=== PATIENT | female | born 1930 | race Caucasian/White ===

== ENCOUNTER 2017-11-03 02:51 | Inpatient (IN) | payer OTHER, MEDICARE ==
[~2017-11-03] VITALS: Ht 154.9 cm; Wt 49.9 kg
[~2017-11-03 02:51] MED LIST: AMOXICILLIN875 M1 PO; ATORVASTATIN CA20 M1 PO; ESCITALOPRAM OX10 MG PO; LEVOTHYROXINE75 MCG PO; MELOXICAM15 M1 PO
--- NOTE | 2017-11-03 10:17 | Admission Core Measures ---
Acute Coronary Syndrome (CM) ACS Core Measures Acute Coronary Syndrome Diagnosis No Congestive Heart Failure (NEW) CHF Core Measures Congestive Heart Failure Diagnosis No Cerebrovascular Accident (NEW) CVA Core Measures CVA/TIA Diagnosis No Venous Thromboembolism VTE Core Bentley (View Protocol) VTE Risk Factors Surgery No Mechanical VTE Prophylaxis d/t N/A MechProphylax Ordered No VTE Pharm Prophylaxis d/t NA PharmProphylax ordered Problem List As ranked by this Provider includes Assessment & Plan 1. Unilateral primary osteoarthritis, right hip HOME MEDS Home Med List Atorvastatin Calcium 20 MG TABLET 1 TAB PO DAILY CHOLESTEROL (Reported) Escitalopram Oxalate 10 MG TABLET 1 TAB PO DAILY MENTAL HEALTH (Reported) Levothyroxine Sodium 75 MCG TABLET 1 TAB PO DAILY THYROID (Reported) Meloxicam 15 MG TABLET 1 TAB PO DAILY PAIN/INFLAMMATION (Reported)
[2017-11-03] MEDS ORDERED: COLACE100 M1 PO (10:21)
[2017-11-03] MEDS ORDERED: MIRALAX17 G1 PO (10:21)
[2017-11-03] MEDS ORDERED: LO-DOSE ASPIRIN81 MG PO (10:21)
[2017-11-03] MEDS ORDERED: DILAUDID2 M1 PO (10:21)
[2017-11-03] MEDS ORDERED: PRILOSEC OTC20 M1 PO (10:21)
--- NOTE | 2017-11-03 10:25 | Patient Discharge Instructions ---
Discharge Instructions General Discharge Information You were seen/treated for: Right hip pain related to unilateral primary osteoarthritis You had these procedures: Right total hip replacement Watch for these problems: Increasing pain despite the use of pain medication Increasing redness, warmth or swelling Drainage of any type from incision Inability to bear weight on operative leg Persistent nausea and vomiting Fever greater than 101.5 degrees Do not soak the wound: Yes No bath, but you may shower: Yes Other wound care: Please keep wound clean and dry. No ointments or lotions of any type on or near incision at any time. No exceptions. Your dressing will be changed by your nurse on the second day after your surgery. Daily dry dressing changes are recommended each day thereafter. Do not soak your wound in a bath at any time until otherwise indicated by your surgeon. You may shower, please dry wound immediately after shower with a clean towel. Special Instructions: Aspirin: You are taking this medication to help prevent blood clot formation. Please take with food to protect your stomach lining. Please take as directed. Constipation: Pain medication can cause constipation. Dr. Wilkerson has recommended that you take Colace and miralax each day. You may discontinue this medication if you develop loose stool or diarrhea. If you wish to continue this medication, it is available over the counter. If you are unable to move your bowels after several days, if you are unable to pass gas and are developing bloating, nausea, or vomiting as a result, please contact your doctor. Diet Continue normal diet: Yes Recommended Diet: Regular Activity Full Activity/No Limits: No Activity Self Limited: Yes Pounds, do NOT lift more than: 10 Acute Coronary Syndrome Inclusion Criteria At DC or during hospital stay patient has or had the following: ACS DIAGNOSIS No Discharge Core Measures Meds if any: Prescribed or Continued at Discharge Meds if any: NOT Prescribed or Continued at Discharge Congestive Heart Failure Inclusion Criteria At DC or during hospital stay patient has or had the following: CHF DIAGNOSIS No Discharge Core Measures Meds if any: Prescribed or Continued at Discharge Meds if any: NOT Prescribed or Continued at Discharge Cerebrovascular accident Inclusion Criteria At DC or during hospital stay patient has or had the following: CVA/TIA Diagnosis No Discharge Core Measures Meds if any: Prescribed or Continued at Discharge Meds if any: NOT Prescribed or Continued at Discharge Venous thromboembolism Inclusion Criteria VTE Diagnosis No VTE Type NONE VTE Confirmed by (Test) NONE Discharge Core Measures - Per Current guidelines, there needs to be overlap - treatment for the first 5 days of Warfarin therapy. - If discharged on Warfarin prior to 5 days of - overlap therapy, the patient will need to be - assessed for post discharge needs including - *Post discharge parental anticoagulation - *Warfarin and/or parental anticoagulation education - *Follow up date to check INR post discharge At least 5 days overlap therapy as Inpatient No Meds if any: Prescribed or Continued at Discharge Note: Overlap Therapy is Warfarin and Anticoagulant Meds if any: NOT Prescribed or Continued at Discharge
--- NOTE | 2017-11-03 10:31 | Surgical Discharge Summary ---
Visit Information Visit Dates Admission Date: 11/03/17 Discharge Date: 11/06/17 History of Present Illness Chief Complaint: Right hip pain related to unilateral primary osteoarthritis Medical History Neurological: NONE EENT: NONE Cardiovascular: NONE Respiratory: NONE Gastrointestinal: NONE Hepatic: NONE Renal: NONE Musculoskeletal: NONE Psychiatric: NONE Endocrine: NONE Blood Disorders: NONE Cancer(s): breast cancer Isolation History: Standard Surgical History Pertinent Surgical History: non-contributory Psychosocial History What is Your Primary Language? Hebrew Review of Systems: See H&P Hospital Course Course Attending Physician: Antonio Wilkerson MD Primary Care Physician: Garrick Connolly MD Hospital Course: Patient was admitted to the hospital for an elective total joint replacement. The procedure was tolerated well and patient was transferred to a general surgical floor. Diet was advanced and tolerated, and the patient voided spontaneously. The patient was evaluated and treated by physical therapy. At the time of hospital discharge, the vital signs were stable, neurovascular status was intact, and pain was controlled with the use of oral pain medications. Allergies: Coded Allergies: No Known Allergies (09/07/17) Disposition Summary Disposition Principal Diagnosis: Right hip unilateral primary osteoarthritis Additional Diagnosis: None Discharge Disposition: home health services Discharge Instructions General Discharge Information Code Status: Full Code Patient's Diet: Regular, advance as tolerated Patient's Activity: WBAT Follow-Up Instructions/Appts: Follow up with Dr. Wilkerson in 6 weeks from date of surgery. Please call his office to arrange and/or confirm this appointment. Medications at Discharge Discharge Medications: Stop taking the following medications: Meloxicam (Meloxicam) 15 MG TABLET ORAL DAILY Qty = 30 Continue taking these medications: Atorvastatin Calcium (Atorvastatin Calcium) 20 MG TABLET 1 Tablet ORAL DAILY Qty = 90 Comments: Last Taken:11/05/17 Time:5PM Levothyroxine Sodium (Levothyroxine Sodium) 75 MCG TABLET 1 Tablet ORAL DAILY Qty = 90 Comments: Last Taken:11/06/17 Time:6AM Escitalopram Oxalate (Escitalopram Oxalate) 10 MG TABLET 1 Tablet ORAL DAILY Qty = 90 Comments: Last Taken:11/06/17 Time:9AM Start taking the following new medications: Aspirin (Lo-Dose Aspirin EC) 81 MG TABLET. 2 Tablet ORAL TWICE DAILY Qty = 84 No Refills Comments: Last Taken:11/06/17 Time:9AM Docusate Sodium (Colace) 100 MG CAPSULE 1 Capsule ORAL TWICE DAILY Qty = 14 No Refills Instructions: DISCONTINUE USE IF YOU DEVELOP LOOSE STOOL OR DIARRHEA Comments: Last Taken:11/06/17 Time:9AM Polyethylene Glycol 3350 (Miralax) 17 GRAM POWD.PACK 1 Packet ORAL DAILY Qty = 7 No Refills Instructions: dissolve in water, DISCONTINUE USE IF YOU DEVELOP LOOSE STOOL OR DIARRHEA Comments: Last Taken:11/06/17 Time:9AM Omeprazole Magnesium (Prilosec Otc) 20 MG TABLET.DR 1 Tablet ORAL DAILY Qty = 30 No Refills Comments: Last Taken:11/06/17 Time:6AM Hydromorphone HCl (Dilaudid) 2 MG TABLET 1-2 Tablet ORAL EVERY 4-6 HOURS NEEDED as needed for PAIN Qty = 36 No Refills Comments: NOT GIVEN
--- NOTE | 2017-11-03 12:07 | RADIOLOGY REPORT ---
EXAMINATION: XR HIP, RIGHT CLINICAL INFORMATION: Status post total hip replacement COMPARISON: None TECHNIQUE: AP and crosstable lateral views of the right hip were obtained FINDINGS: The components of the total hip arthroplasty are in their expected positions. The femoral head prosthesis is well centered within the acetabular cup. The tip of the femoral stem is well-positioned in the medullary cavity of the proximal femoral diaphysis. No acute periprosthetic fracture. Postoperative soft tissue emphysema around the hip. IMPRESSION: 1. There is satisfactory positioning and alignment of components of the right total hip arthroplasty. 2. No acute periprosthetic fracture.
[2017-11-03 13:02] VITALS: BP 140/68
--- NOTE | 2017-11-03 14:19 | Operative Report ---
Operative/Inv Procedure Report Surgery Date: 11/03/17 Name of Procedure: Right total hip replacement Pre-Operative Diagnosis: Primary right hip DJD Post-Operative Diagnosis: Same Estimated Blood Loss: 250 Surgeon/Senior Web Developer: Rock VICKERS,Antonio Valdez Anesthesia: laryngeal mask airway, block Operative/Procedure Note Note: Description of Procedure: The patient was taken to the operating room and positively identified. After induction of spinal anesthesia and administration of appropriate pre-operative antibiotics, the patient was positioned supine on the operating room table and all bony prominences were well padded. After performing a surgical timeout, the right lower extremity was prepped and draped in the usual sterile fashion. A direct anterior approach was made to the right hip. The incision was carried sharply through superficial soft tissues to the level of the fascia. Meticulous hemostasis was maintained with Bovie electocautery. The fascia over the tensor fascia nilson muscle was opened sharply and the interval between the TFL and the sartorius was entered bluntly taking care to stay lateral to the lateral femoral cutaneous nerve. Retractors were placed around the femoral neck and the pericapsular fat was identified. The ascending branches of the lateral femoral circumflex vessels were identified and carefully coagulated. The pericapsular fat and anterior capsule were then resected. A napkin ring osteotomy was performed and the femoral head was removed without difficulty. Attention was then turned to the acetabulum. After appropriate placement of retractors, the acetabulum was exposed. Soft tissue was cleaned from the acetabular margin and notch. Overhanging osteophytes were removed and the teardrop was exposed. The acetabulum was then sequentially reamed to accept a 54 mm [place] Tritanium hemispherical solid shell. This was impacted into place in the appropriate position and fitted with a 36 mm Trident X3 zero degree polyethylene insert. Attention was then turned to the femur. After performing the appropriate ligament releases, the proximal femur was exposed. It was then sequentially broached to accept a size #2 [place] Accolade II stem. This was trialed for leg length and stability. The trial component was removed and the final component was impacted into place. The trunnion was carefully cleaned and fit with a 36 mm, -2.5 Biolox delta ceramic femoral head. The hip was reduced and put through a full range of motion and found to be stable. The articular space was then irrigated with sterile saline. The periarticular soft tissues were infilitrated with Marcaine. The fascial layer was closed with interrupted #1 vicryl suture and the skin was re-approximated with interrupted 2 -0 vicryl. The skin was closed with a running 3-0 V-Lock suture. Steri-strips and a sterile dressing were applied. The patient was awakened and taken to the recovery room in satisfactory condition.
--- NOTE | 2017-11-03 15:11 | PN- Orthopedic ---
Subjective Subjective: Post op check: No complaints offered at the present time. She states that she is starting to feel slightly sore in her operative groin. She denies chest pain , shortness of breath and difficulty breathing. She denies nausea and vomitting. She reports a void. Objective Vital Signs and I&Os Vital Signs Date Time Temp Pulse Resp B/P B/P Pulse O2 O2 Flow FiO2 Mean Ox Delivery Rate 11/03 1302 97.6 75 20 140/68 90 Room Air Room Air Intake & Output 11/03 1600 11/03 0811/03 0000 11/02 1600 11/02 0800 11/02 0000 Intake Total Output Total Balance Patient 110 lb Weight Weight Reported by Patient Measurement Method Physical Exam: General: Alert and oreinted x3, no acute distress, resting comfortably Cardiac: RRR, s1s2 Pulm: CTA bilaterally ABD: Non-tender, non-distended Extremities: Moves all extremities, distal sensation grossly intact. Motor 5/5 in plantar and dorsi flexion. No rotational deformity. Skin warm and well pefused. DP pulses palpable bilaterally. Bilateral calves soft and non-tender. Surgical site: R KERRIE. Dressing dry and intact. Thigh compartment soft. No evidence of hematoma. Assessment/Plan Assessment/Plan This is a 87 year old female POD 0 s/p R THR. PMH signficant for: hld, dep, and hypothyroid. -Continue all home meds -ABX ppx: Ancef 2 grams, q8 hours for a total of 2 additional doses -DVT ppx: ASA 325 bid, ALPS, TEDS -Pain regimen: ATC offirmev, po dilaudid prn, iv morphine for breakthrough prn -Activity: OOB encouraged, Can WBAT -Diet: Regular, advance as tolerated -DC iv fluids when voiding regularly and taking in adequate po -Will follow up am labs tomorrow, cbc and bep -Incentive spirometry encouraged -Anticipate dc to home with hhs after 3 nights Core Measures Venous Thromboembolism VTE Risk Factors Surgery No Mechanical VTE Prophylaxis d/t N/A MechProphylax Ordered No VTE Pharm Prophylaxis d/t NA PharmProphylax ordered
[2017-11-03 16:00] VITALS: BP 130/70
[2017-11-03 18:00] VITALS: BP 132/64
[2017-11-03 21:30] VITALS: BP 124/60
[2017-11-04 02:00] VITALS: BP 110/69
[2017-11-04 06:00] VITALS: BP 150/70
--- NOTE | 2017-11-04 07:19 | PN- Orthopedic ---
Subjective Subjective: Complaints of soreness in the right hip, no other complaints, no acute events overnight, pain medication is helping her. She has been in the toilet to the bathroom without difficulty with assist, she is voiding without difficulty. She is taking in adequate by mouth fluids. no fever or flulike illness. Objective Vital Signs and I&Os Vital Signs Date Time Temp Pulse Resp B/P B/P Pulse O2 O2 Flow FiO2 Mean Ox Delivery Rate 11/04 0600 98.0 93 20 150/70 94 Room Air 11/04 0200 98.9 76 20 110/69 93 Room Air 02 0000 Room Air 02 2130 98.7 80 20 124/60 94 Room Air / 1800 97.8 94 20 132/64 93 Room Air / 1600 98.5 82 18 130/70 93 Room Air 02/ 1302 97.6 75 20 140/68 90 Room Air Room Air Intake & Output 11/04 0800 02/06 0000 02/05 1600 / 0800 02/ 0000 02/ 1600 Intake Total 1080 270 Output Total 1400 2200 Balance -1400 -1120 270 Intake, IV 600 150 Intake, Oral 480 120 Output, Urine 1400 2200 Patient 110 lb Weight Weight Reported by Patient Measurement Method Physical Exam: Well-developed well-nourished no apparent distress. HEENT: Atraumatic, extraocular motion intact Neck: Supple, no lymphadenopathy Respiratory: No respiratory distress Extremities: No edema RIGHT lower extremity hip dressing in place, Dressing clean dry and intact Mild thigh swelling No signs of infection. No shortening or rotation Hip range of motion is limited and without unexpected pain Neurovascularly intact distally Bilateral calves are supple, nontender. Neuro: Alert and oriented x3 Psych: Mood affect normal, normal memory normal judgment. Skin: Warm and dry, no rash on exposed skin Assessment/Plan Assessment/Plan Postop day 1 status post right total hip arthroplasty anterior approach. Perioperative antibiotics. Pain medication as needed. Out of bed Physical therapy, weightbearing as tolerated DC IV fluids Regular diet Follow a.m. labs Aspirin for DVT prophylaxis ALPS for DVT prophylaxis Regular home meds Dressing change postop day 2 Plan for home DC w VNA in 2 days Core Measures Venous Thromboembolism VTE Risk Factors Surgery No Mechanical VTE Prophylaxis d/t N/A MechProphylax Ordered No VTE Pharm Prophylaxis d/t NA PharmProphylax ordered
[2017-11-04 08:55] VITALS: BP 125/72
[2017-11-04 11:14] VITALS: BP 128/60
[2017-11-04 13:46] LABS: ABSOLUTE BASOPHIL COUNT 0.1 /CUMM (0.0-0.2); ABSOLUTE EOSINOPHIL COUNT 0.1 /CUMM (0.0-0.7); ABSOLUTE GRANULOCYTE CT 8.7 /CUMM (1.4-6.5); ABSOLUTE MONOCYTE COUNT 0.8 /CUMM (0.10-0.60); BASOPHIL % 0.4 % (0.0-2.0); EOSINOPHIL % 1.2 % (0-5); GRANULOCYTE % 68.6 % (42.2-75.2); HEMATOCRIT 32.5 % (37-47); MEAN CORPUSCULAR HGB 31.3 PG (27.0-31.0); MEAN CORPUSCULAR HGB CONC 33.2 G/DL (33.0-37.0); MEAN CORPUSCULAR VOLUME 94.2 FL (81.0-99.0); MEAN PLATELET VOLUME 7.3 FL (7.4-10.4); PLATELET COUNT 427 /CUMM (130-400); RBC DISTRIBUTION WIDTH 14.4 % (11.5-14.5); RED BLOOD CELL CT 3.45 /CUMM (4.20-5.40); WHITE BLOOD CELL COUNT 12.7 /CUMM (4.8-10.8)
[2017-11-04 22:12] VITALS: BP 112/50
[2017-11-05 02:00] VITALS: BP 130/66
--- NOTE | 2017-11-05 07:13 | PN- Orthopedic ---
Subjective Subjective: pod#2 s/p right alfredo resting comfortably difficult to arose, just medicated with dilaudid at 0455 vss Objective Vital Signs and I&Os Vital Signs Date Time Temp Pulse Resp B/P B/P Pulse O2 O2 Flow FiO2 Mean Ox Delivery Rate 02/ 0200 98.9 99 20 130/66 92 Room Air / 2212 99.2 102 20 112/50 93 02/ 1114 97.5 92 20 128/60 94 02/06 0855 98.2 88 16 125/72 93 Intake & Output 02/ 0800 02/ 0000 02/ 1600 02/ 0800 02/ 0000 / 1600 Intake Total 517 465 3925 1080 270 Output Total 1400 2200 Balance 820 825 850 -1120 270 Intake, IV 20 75 650 600 150 Intake, Oral 320 942 0493 480 120 Number 0 Bowel Movements Output, Urine 1400 2200 Patient 110 lb Weight Weight Reported by Patient Measurement Method Physical Exam: cv: rrr lungs: clear abd: soft, +bs ext: drsg changed, wound c/d/i thigh soft, no calf tenderness to palp distal cms intact Assessment/Plan Assessment/Plan ortho stable oversedated plan wean narcs continue oob with pt asa/alps for dvt prophylaxis continue with sitter for safety home d/c planning Core Measures Venous Thromboembolism VTE Risk Factors Surgery No Mechanical VTE Prophylaxis d/t N/A MechProphylax Ordered No VTE Pharm Prophylaxis d/t NA PharmProphylax ordered
[2017-11-05 07:48] VITALS: BP 140/70
--- NOTE | 2017-11-05 13:05 | PN- Orthopedic ---
Surgical Brief Attending Note Brief Attending Note: Sleeping soundly, but arousable. Not complaining of pain at this time. NVI distally s/p R KERRIE Minimize opioids Continue PT
[2017-11-05 14:29] VITALS: BP 130/70
[2017-11-05 16:48] LABS: ABSOLUTE BASOPHIL COUNT 0 /CUMM (0.0-0.2); ABSOLUTE EOSINOPHIL COUNT 0.1 /CUMM (0.0-0.7); ABSOLUTE GRANULOCYTE CT 12.5 /CUMM (1.4-6.5); ABSOLUTE LYMPH COUNT 2.4 /CUMM (1.2-3.4); ABSOLUTE MONOCYTE COUNT 0.9 /CUMM (0.10-0.60); BASOPHIL % 0.3 % (0.0-2.0); EOSINOPHIL % 0.7 % (0-5); GRANULOCYTE % 78.3 % (42.2-75.2); MEAN CORPUSCULAR HGB 31.8 PG (27.0-31.0); MEAN CORPUSCULAR HGB CONC 33.9 G/DL (33.0-37.0); MEAN CORPUSCULAR VOLUME 93.8 FL (81.0-99.0); MEAN PLATELET VOLUME 7.6 FL (7.4-10.4); PLATELET COUNT 473 /CUMM (130-400); RBC DISTRIBUTION WIDTH 14.8 % (11.5-14.5); RED BLOOD CELL CT 3.63 /CUMM (4.20-5.40); WHITE BLOOD CELL COUNT 15.9 /CUMM (4.8-10.8)
[2017-11-05 22:32] VITALS: BP 102/52
[2017-11-06 05:00] VITALS: BP 116/60
--- NOTE | 2017-11-06 09:38 | PN- Orthopedic ---
Subjective Subjective: No acute events overnight, still with mild soreness in the right hip but otherwise pain is well controlled. No voiced complaints. Planning for discharge later today Objective Vital Signs and I&Os Vital Signs Date Time Temp Pulse Resp B/P B/P Pulse O2 O2 Flow FiO2 Mean Ox Delivery Rate 11/06 0500 98.5 96 18 116/60 92 Room Air 11/05 2232 98.9 88 20 102/52 94 Room Air 11/05 1429 97.4 90 18 130/70 93 Intake & Output 11/06 0000 11/05 1600 11/05 0000 Intake Total 360 360 800 50 820 Output Total 700 300 600 Balance -340 60 200 50 820 Intake, IV 0 20 Intake, Oral 360 360 800 50 800 Number 0 Bowel Movements Output, Urine 700 300 600 Physical Exam: Well-developed well-nourished no apparent distress. HEENT: Atraumatic, extraocular motion intact Neck: Supple, no lymphadenopathy Respiratory: No respiratory distress Extremities: No edema RIGHT lower extremity hip dressing in place, Dressing clean dry and intact Incision without erythema Mild thigh swelling No signs of infection. No shortening or rotation Hip range of motion is limited and without unexpected pain Neurovascularly intact distally Bilateral calves are supple, nontender. Neuro: Alert and oriented x3 Psych: Mood affect normal, normal memory normal judgment. Skin: Warm and dry, no rash on exposed skin Results Last 48 Hours of Labs: Laboratory Tests 11/05 11/04 1555 1315 Chemistry Sodium (137 - 145 mmol/L) 131 L 135 L Potassium (3.5 - 5.1 mmol/L) 4.1 3.7 Chloride (98 - 107 mmol/L) 97 L 102 Carbon Dioxide (22 - 30 mmol/L) 25 24 Anion Gap (5 - 16) 9 9 BUN (7 - 17 mg/dL) 14 9 Creatinine (0.5 - 1.0 mg/dL) 0.5 0.5 Estimated GFR (>60 ml/min) > 60 > 60 BUN/Creatinine Ratio (7 - 25 %) 28.0 H 18.0 Hematology CBC w Diff NO MAN DIFF REQ NO MAN DIFF REQ WBC (4.8 - 10.8 /CUMM) 15.9 H 12.7 H RBC (4.20 - 5.40 /CUMM) 3.63 L 3.45 L Hgb (12.0 - 16.0 G/DL) 11.6 L 10.8 L Hct (37 - 47 %) 34.0 L 32.5 L MCV (81.0 - 99.0 FL) 93.8 94.2 MCH (27.0 - 31.0 PG) 31.8 H 31.3 H MCHC (33.0 - 37.0 G/DL) 33.9 33.2 RDW (11.5 - 14.5 %) 14.8 H 14.4 Plt Count (130 - 400 /CUMM) 473 H 427 H MPV (7.4 - 10.4 FL) 7.6 7.3 L Gran % (42.2 - 75.2 %) 78.3 H 68.6 Lymphocytes % (20.5 - 51.1 %) 15.3 L 23.7 Monocytes % (1.7 - 9.3 %) 5.4 6.1 Eosinophils % (0 - 5 %) 0.7 1.2 Basophils % (0.0 - 2.0 %) 0.3 0.4 Absolute Granulocytes (1.4 - 6.5 /CUMM) 12.5 H 8.7 H Absolute Lymphocytes (1.2 - 3.4 /CUMM) 2.4 3.0 Absolute Monocytes (0.10 - 0.60 /CUMM) 0.9 H 0.8 H Absolute Eosinophils (0.0 - 0.7 /CUMM) 0.1 0.1 Absolute Basophils (0.0 - 0.2 /CUMM) 0 0.1 Assessment/Plan Assessment/Plan Postop day 3 status post right total hip arthroplasty anterior approach. Patient orthopedically stable for discharge today to home with VNA services Continue aspirin for DVT prophylaxis. Pain medication as needed Outpatient follow-up Core Measures Venous Thromboembolism VTE Risk Factors Surgery No Mechanical VTE Prophylaxis d/t N/A MechProphylax Ordered No VTE Pharm Prophylaxis d/t NA PharmProphylax ordered
== END 2017-11-06 11:36 | disposition home health service (06) | DRG 470 ==
LOC: SDA 02:51 → EDBEDREQ 11:29 → ENRESERV 11:31 → ENTRNSPT 12:12 → EDTRNSPT 12:31 → EDTRNSPTSTS 12:31 → 2NA 12:44 → CMPTRNSPT 12:51 → ENPENDDIS 11-06 09:42 → 2NA 11-06 11:36
PROVIDERS: Nurse Practitioner
PROC: 0SR904A Replacement of Right Hip Joint with Ceramic on Polyethylene Synthetic Substitute, Uncemented, Open Approach (ICD-10-PCS; principal; 2017-11-03)
DX: M16.11 Unilateral primary osteoarthritis, right hip (principal); M25.751 Osteophyte, right hip
CPT/HCPCS: 2NAP; 36415; 73502-RT; 82436; 88304; 97110-GO; 97116-GO; 97161-GP; 97530-GO; J0131; J0690; J0735; J2405; J2550; J3490; J7042

== ENCOUNTER 2018-06-19 13:54 | Emergency (ER) | payer OTHER, MEDICARE ==
[~2018-06-19] VITALS: Ht 160 cm; Wt 59.0 kg
[~2018-06-19 13:54] MED LIST changes: -ATORVASTATIN CA20 M1 PO; +ATORVASTATIN CA40 M1 PO; +COLACE100 M1 PO; +DILAUDID2 M1 PO; -LEVOTHYROXINE75 MCG PO; +LEVOXYL88 MCG PO; +LO-DOSE ASPIRIN81 MG PO; +MIRALAX17 G1 PO; +PRILOSEC OTC20 M1 PO
[2018-06-19] MEDS ORDERED: DONEPEZIL HCL10 M1 PO (15:00)
[2018-06-19 15:02] LABS: ABSOLUTE BASOPHIL COUNT 0 /CUMM (0.0-0.2); ABSOLUTE EOSINOPHIL COUNT 0.2 /CUMM (0.0-0.7); ABSOLUTE GRANULOCYTE CT 4.7 /CUMM (1.4-6.5); ABSOLUTE LYMPH COUNT 2.4 /CUMM (1.2-3.4); ABSOLUTE MONOCYTE COUNT 0.5 /CUMM (0.10-0.60); BASOPHIL % 0.4 % (0.0-2.0); EOSINOPHIL % 2.4 % (0-5); GRANULOCYTE % 59.8 % (42.2-75.2); HEMATOCRIT 41.2 % (37-47); MEAN CORPUSCULAR HGB 31.4 PG (27.0-31.0); MEAN CORPUSCULAR HGB CONC 34.2 G/DL (33.0-37.0); MEAN CORPUSCULAR VOLUME 91.8 FL (81.0-99.0); MEAN PLATELET VOLUME 7.8 FL (7.4-10.4); PLATELET COUNT 368 /CUMM (130-400); RBC DISTRIBUTION WIDTH 13.4 % (11.5-14.5); RED BLOOD CELL CT 4.49 /CUMM (4.20-5.40); WHITE BLOOD CELL COUNT 7.9 /CUMM (4.8-10.8)
--- NOTE | 2018-06-19 15:37 | ED GENERAL ADULT ---
History of Present Illness General Chief Complaint: Nausea, Vomiting, Diarrhea Stated Complaint: NAUSEA X 3 DAYS Source: patient Exam Limitations: no limitations Vital Signs & Intake/Output Vital Signs & Intake/Output Vital Signs Date Time Temp Pulse Resp B/P B/P Pulse O2 O2 Flow FiO2 Mean Ox Delivery Rate 06/19 1521 98.0 69 20 173/76 95 Room Air 06/19 1424 97.9 71 20 181/96 94 Room Air Allergies Coded Allergies: No Known Allergies (06/19/18) Reconcile Medications Aspirin (Lo-Dose Aspirin EC) 81 MG TABLET.DR 2 TAB PO BID ANTICOAGULATION Atorvastatin Calcium 40 MG TABLET 1 TAB PO DAILY CHOLESTEROL (Reported) Donepezil HCl 10 MG TABLET 1 TAB PO DAILY DEMENTIA (Reported) Escitalopram Oxalate 10 MG TABLET 1 TAB PO DAILY MENTAL HEALTH (Reported) Hydromorphone HCl (Dilaudid) 2 MG TABLET 1-2 TAB PO Q4-6 PRN PRN PAIN Levothyroxine Sodium (Levoxyl) 88 MCG TABLET 1 TAB PO DAILY AC THYROID ( Reported) Nitrofurantoin Monohyd/M-Cryst (Macrobid 100 MG Capsule) 100 MG CAPSULE 1 CAP PO BID acute cystitis Omeprazole Magnesium (Prilosec Otc) 20 MG TABLET.DR 1 TAB PO DAILY GI PROTECTION Promethazine HCl 12.5 MG TABLET 1 TAB PO Q6-8 PRN nausea Triage Note: PT TO ER C/C VOMITED ONCE A DAY FOR THE LAST 3 DAYS. DENIES NAUSEA AT PRESENT. STATES "EATING MUCH I CAN", LAST BOWEL MOVEMENT "PROBABLY YESTERDAY". DENIES C/P, ABD PAIN, SOB. DENIES HX OF SAME. DENIES URINARY S/S. NICOLE DEL CASTILLO EVALUATING PATIENT AT PRESENT. Triage Nurses Notes Reviewed? yes HPI: 87-year-old female presents with nausea and vomiting for the past 3 days. Has a single episode of nausea vomiting daily. Denies abdominal pain, diarrhea, constipation. Vomitus consisted of what she ate except for today which she said was bilious. Has not ate anything out of the ordinary. Today she was watching her stories when all of a sudden she felt nauseated and had a episode of vomiting. Denies fatigue, dizziness, chest pain, or abdominal pain. Past History Travel History Traveled to [place] past 21 day No Medical History Any Pertinent Medical History? 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 No Review of Systems Review of Systems Constitutional: Reports: no symptoms, see HPI. EENTM: Reports: no symptoms. Respiratory: Reports: no symptoms. Cardiovascular: Reports: no symptoms. GI: Reports: no symptoms. Genitourinary: Reports: no symptoms. Musculoskeletal: Reports: no symptoms. Skin: Reports: no symptoms. Neurological/Psychological: Reports: no symptoms. Hematologic/Endocrine: Reports: no symptoms. Immunologic/Allergic: Reports: no symptoms. All Other Systems: Reviewed and Negative Physical Exam Physical Exam General Appearance: well developed/nourished, comfortable Comments: Gen.: Well-nourished, well-developed, no acute respiratory distress. Head: Normocephalic, atraumatic. Eyes: Normal inspection bilaterally Ears: Normal inspection bilaterally Nose: Normal inspection Throat/mouth : Moist mucosa Neck: Supple, full range of motion, no goiter Heart: Regular rate and rhythm, no murmurs rubs or gallops Lungs: Clear to auscultation bilaterally with normal air entry Chest: Nontender Back: Normal range of motion Abdomen: Soft, nontender, nondistended, normal bowel sounds Extremities: Normal range of motion grossly, equal radial pulses, no cyanosis clubbing or edema Neurologic: Cranial nerves grossly intact, speech is clear Skin: warm and dry Psychiatric: Calm, cooperative, no apparent delusions or hallucinations Core Measures ACS in differential dx? No CVA/TIA Diagnosis: No Sepsis Present: No Sepsis Focused Exam Completed? No Progress Differential Diagnoses I considered the following diagnoses in my evaluation of the patient: Appendicitis-the patient did not have migration of the pain to the right lower quadrant, tenderness over McBurney's point, Rovsing sign, white cell blood count was not elevated, and the diagnostic imaging studies did not confirm this Peritonitis-the patient had no rebound or guarding, did not have a rigid abdomen , the white blood cell count was not elevated and There was no inflammatory process on diagnostic imaging studies. Cholecystitis-the patient had no Peter's sign on exam, white blood cell count was normal, and diagnostic imaging studies showed no inflammatory changes in the region of the gallbladder Pancreatitis-the lipase was normal, patient had no history of alcohol abuse or hypertriglyceridemia, but the diagnostic imaging studies did not show inflammation or edema in the area of the pancreas GI bleed-patient had no history of prior GI bleed, patient denied consistent use of NSAIDs, the patient is not taking anticoagulants such as Coumadin, the patient denied melena. AAA-the patient has a paucity of significant risk factors for vascular disease, there is no pulsatile abdominal mass, lower extremity pulses were equal Hernia-there were no apparent hernias on physical examination, the patient denied any unusual bulges or masses Ischemic bowel-the patient has a paucity of risk factors for vascular disease or thrombosis, physical examination did not reveal pain out of proportion to physical exam findings, diagnostic imaging studies were inconsistent with bowel ischemia Bowel obstruction-patient's abdomen was not significantly distended or hypertympanitic, patient had good bowel sounds, patient was having bowel movements and passing flatus. Plan of Care: Orders Procedure Date/time Status URINALYSIS 06/19 1425 Complete LIPASE 06/19 1425 Complete COMPREHENSIVE METABOLIC PANEL 06/19 142 Complete CBC WITHOUT DIFFERENTIAL 06/19 142 Complete Laboratory Tests 06/19/18 1626: Urine Color YEL, Urine Clarity HAZY H, Urine pH 7.5, Ur Specific [place] 1.020, Urine Protein NEG, Urine Ketones NEG, Urine Nitrite NEG, Urine Bilirubin NEG, Urine Urobilinogen 0.2, Ur Leukocyte Esterase SMALL H, Ur Microscopic SEDIMENT EXAMINED, Urine RBC 1-3, Urine WBC 1-3 H, Ur Epithelial Cells MANY H, Urine Bacteria MANY H, Urine Mucus RARE, Urine Hemoglobin NEG, Urine Glucose NEG 06/19/18 1437: Anion Gap 12, Estimated GFR > 60, BUN/Creatinine Ratio 21.3, Glucose 118 H, Calcium 10.0, Total Bilirubin 1.0, AST 32, ALT 39, Alkaline Phosphatase 72, Total Protein 7.7, Albumin 4.6, Globulin 3.1, Albumin/Globulin Ratio 1.5, Lipase 112, CBC w Diff NO MAN DIFF REQ, RBC 4.49, MCV 91.8, MCH 31.4 H, MCHC 34.2, RDW 13.4, MPV 7.8, Gran % 59.8, Lymphocytes % 30.9, Monocytes % 6.5, Eosinophils % 2.4, Basophils % 0.4, Absolute Granulocytes 4.7, Absolute Lymphocytes 2.4, Absolute Monocytes 0.5, Absolute Eosinophils 0.2, Absolute Basophils 0 Initial ED EKG: none Comments: Abdominal exam negative for tenderness upon palpation or distention. History is negative for abdominal pain or obstipation. Laboratory examination within normal limits. Antibiotics prescribed for acute cystitis. Phenergan prescribed for nausea vomiting. Likely etiology of pill esophagitis versus taking medication on empty stomach. Return precautions given. Departure Departure Disposition: HOME OR SELF CARE Condition: Stable Clinical Impression Primary Impression: Dyspepsia Secondary Impressions: Acute cystitis Qualifiers: Hematuria presence: without hematuria Qualified Code: N30.00 - Acute cystitis without hematuria Referrals: Mohsen VICKERS,Garrick Royal (PCP/Family) Departure Forms: Customer Survey General Discharge Information Prescriptions: Current Visit Scripts Nitrofurantoin Monohyd/M-Cryst (Macrobid 100 MG Capsule) 1 CAP PO BID #10 CAP Promethazine HCl 1 TAB PO Q6-8 PRN nausea #20 TAB Comments Please note that there might be incidental findings in your evaluation that are unrelated to the current emergency department visit. Please notify your primary care doctor about this emergency department visit in order to obtain and review all of the testing performed so that these incidental findings can be monitored as needed. If you had an x-ray performed, please understand that some fractures may not be seen on the initial set of x-rays. If your symptoms persist you might need a repeat set of x-rays to check for such a fracture. If you had a laceration evaluated, please understand that foreign bodies such as glass or wood may not be visible to the naked eye or on plain x-rays. If the wound becomes red, swollen, increasingly more painful or if there is any drainage from the wound, please have it reevaluated by a physician for the possibility of a retained foreign body. If you're unable to follow up as outlined in the discharge instructions please return to the emergency department. Critical Care Note Critical Care Note Critical Care Time: non-applicable
--- NOTE | 2018-06-19 17:42 | CT SCAN REPORT ---
EXAMINATION: CT ABDOMEN AND PELVIS WITH CONTRAST CLINICAL INFORMATION: Nausea. Vomiting. COMPARISON: None TECHNIQUE: Multidetector volumetric imaging was performed of the abdomen and pelvis following IV administration of 95 mL of Optiray 320 intravenous contrast. Sagittal and coronal reformatted images were obtained on the technologist's workstation. DLP: 244.32 mGy-cm FINDINGS: LUNG BASES: The visualized lung bases are unremarkable. There is a moderate-sized hiatal hernia. LIVER, GALLBLADDER, AND BILIARY TREE: The liver is normal in size, shape, and attenuation. No focal hepatic lesion or biliary ductal dilatation is present. The gallbladder is unremarkable with no evidence of radiopaque gallstones, gallbladder wall thickening, or obvious pericholecystic inflammatory changes. PANCREAS: Unremarkable. SPLEEN: Unremarkable. ADRENAL GLANDS: Unremarkable. KIDNEYS AND URETERS: The kidneys are normal in size, shape, and attenuation. No hydronephrosis, hydroureter, or calculi seen. No perinephric stranding. BLADDER: Unremarkable. GASTROINTESTINAL TRACT: There are diverticula of the left colon sigmoid. There is no diverticulitis. There is no acute change of the bowel. No bowel obstruction. There is no bowel wall thickening or edema. The appendix is not visualized. There is no inflammation of the mesentery. ABDOMINAL WALL: No significant hernia is appreciated. LYMPH NODES: Normal. VASCULAR: There is an aneurysm of the distal aorta. This measures 2.6 cm AP. There is diffuse atherosclerotic vascular calcifications throughout the abdomen and the pelvis. PELVIC VISCERA: The pelvis is partially obscured by streak artifact from the right hip replacement. Uterus is retroverted. There is no adnexal abnormality. OSSEOUS STRUCTURES: Status post right hip replacement. There is multilevel degenerative spondylosis of spine with disc height narrowing and plate spurring and facet joint arthrosis. There is a levoscoliosis of the thoracolumbar spine. There is no healed fracture of the left superior pubic ramus and the left ischium with residual deformity. IMPRESSION: There is no acute abnormality of the abdomen or the pelvis.
[2018-06-19] MEDS ORDERED: PROMETHAZINE12.5 M2 PO ×2 (17:57→18:01)
[2018-06-19] MEDS ORDERED: MACROBID 100 M100 MG PO ×2 (17:57→18:01)
[2018-06-19 18:02] VITALS: BP 156/82
== END 2018-06-19 18:03 ==
LOC: ERH 13:54
PROVIDERS: Physician Assistant Medical
DX: R10.13 Epigastric pain (principal); N30.00 Acute cystitis without hematuria; E78.5 Hyperlipidemia, unspecified; F41.9 Anxiety disorder, unspecified; E03.9 Hypothyroidism, unspecified; F17.210 Nicotine dependence, cigarettes, uncomplicated
CPT/HCPCS: 74177; 81001; J3101